=== PATIENT | female | born 1955 | race Caucasian/White ===

== ENCOUNTER 2017-06-21 10:49 | Emergency (ER) | payer OTHER ==
[~2017-06-21] VITALS: Ht 167.6 cm; Wt 77.1 kg
[2017-06-21] MEDS ORDERED: MECLIZINE HCL 12.5 MG TAB PO ONE (11:15)
[2017-06-21] MEDS ORDERED: IBUPROFEN 400 MG TAB PO ONE (11:30)
[2017-06-21] MEDS ORDERED: TETANUS/DIPHTHERIA TOX ADULT 0.5 ML SYR IM ONE (11:30)
[2017-06-21] MEDS ORDERED: LIDOCAINE 1% 5ML-MPF INJ ONE (11:30)
[2017-06-21] MEDS ORDERED: LIDOCAINE HCL 1% LOCAL INJ 20 ML VIAL INJ ONE (12:00)
[2017-06-21] MEDS ORDERED: LIDOCAINE HCL 1% LOCAL INJ 20 ML VIAL ONE (12:04)
== END 2017-06-21 14:07 | disposition home or self-care (01) ==
LOC: ER 10:49
DX: S01.511A Laceration without foreign body of lip, initial encounter (principal); S06.0X0A Concussion without loss of consciousness, initial encounter; W01.0XXA Fall on same level from slipping, tripping and stumbling without subsequent striking against object, initial encounter; Y92.008 Other place in unspecified non-institutional (private) residence as the place of occurrence of the external cause; I10 Essential (primary) hypertension
CPT/HCPCS: 12011; 90714; 90471; 99283; J2001